=== PATIENT | male | born 1945 | race Caucasian/White ===

== ENCOUNTER 2021-05-04 08:00 | Outpatient (CLI) | payer MEDICARE | END 2021-05-04 23:59 | disposition home or self-care (01) | LOC: LAB.N 08:00 | PROVIDERS: ATTEND Physician Assistant | DX: R39.9 Unspecified symptoms and signs involving the genitourinary system (principal) | CPT/HCPCS: 87086 ==

== ENCOUNTER 2023-04-07 23:55 | Day surgery (SDC) | payer MEDICARE ==
[2023-04-08 00:37] LABS: BASOPHILS % (AUTO) 0.5 %; EOSINOPHILS # (AUTO) 0.2 10^3/uL (0.0-0.7); EOSINOPHILS % (AUTO) 2.3 %; HCT - HEMATOCRIT 42.8 % (42.0-52.0); HGB - HEMOGLOBIN 14.7 g/dL (14.0-18.0); LYMPHOCYTES # (AUTO) 1.3 10^3/uL (1.5-3.5); LYMPHOCYTES % (AUTO) 15.6 %; MEAN CORPUSCULAR HEMOGLOBIN 33.1 pg (27.0-31.0); MEAN CORPUSCULAR HGB CONC 34.3 g/dL (32.0-36.0); MEAN CORPUSCULAR VOLUME 96.4 fL (80.0-94.0); MONOCYTES # (AUTO) 0.7 10^3/uL (0.0-1.0); MONOCYTES % (AUTO) 8.1 %; NEUTROPHILS # (AUTO) 6.1 10^3/uL (1.5-6.6); NEUTROPHILS % (AUTO) 72.9 %; PLT - PLATELET COUNT 195 10^3/uL (130-450); RED BLOOD COUNT 4.44 10^6/uL (4.70-6.10); RED CELL DISTRIBUTION WIDTH 11.9 % (12.0-15.0); WHITE BLOOD COUNT 8.3 x10^3/uL (4.8-10.8)
[2023-04-08] MEDS ORDERED: MORPHINE 2 MG/ML CARPUJECT IVP STA ×2 (00:52→01:24)
[2023-04-08 00:54] LABS: ALBUMIN 4.6 g/dL (3.2-5.5); ALBUMIN/GLOBULIN RATIO 1.5 (1.0-2.2); BILIRUBIN,TOTAL 0.3 mg/dL (0.2-1.0); CALCIUM 9.6 mg/dL (8.5-10.3); CREATININE 2.1 mg/dL (0.6-1.3); POTASSIUM 4.1 mmol/L (3.5-4.5); TOTAL PROTEIN 7.7 g/dL (6.4-8.9)
[2023-04-08] MEDS ORDERED: SODIUM CHLORIDE 0.9% 1,000 ML IV STA ×2 (01:20→02:54)
[2023-04-08] MEDS ORDERED: iohexoL-300 100 ML VIAL IVP ONE (02:13)
--- NOTE | 2023-04-08 02:16 | ED Physician Documentation ---
PD HPI ABD PAIN - Stated complaint Stated Complaint: STOMACH PX - Chief complaint Chief Complaint: Abd Pain - History obtained from History obtained from: Patient - Additional information Additional information: 77-year-old male with history of hypertension, hyperlipidemia presents from home by private vehicle for "a stomachache". Patient states that he was sitting in his recliner watching TV when at 9 PM he noticed a sharp pain in his right upper quadrant. He had an episode of emesis but the pain persisted and so he decided to present for evaluation. Patient states he had a similar episode 3 to 4 days ago, but did not seek medical care at that time because his symptoms resolved on their own. No medications taken prior to arrival. Reports history of prostatectomy, denies other abdominal surgeries. Review of Systems Constitutional: denies: Fever, Chills Cardiac: denies: Chest pain / pressure, Palpitations Respiratory: denies: Dyspnea, Cough, Wheezing GI: reports: Abdominal Pain, Nausea, Vomiting : denies: Dysuria, Frequency, Hesitancy Skin: denies: Rash, Lesions Musculoskeletal: denies: Neck pain PD PAST MEDICAL HISTORY - Past Medical History Past Medical History: Yes Cardiovascular: Hypertension, High cholesterol - Past Surgical History Past Surgical History: Yes - Present Medications Home Medications: Ambulatory Orders Medication Instructions Recorded Confirmed Losartan [Cozaar] 50 mg PO DAILY 04/08/23 04/08/23 Lovastatin 40 mg PO DAILY 04/08/23 04/08/23 Tamsulosin HCl [Flomax] 0.4 mg PO DAILY 04/08/23 04/08/23 amLODIPine [Norvasc] 5 mg PO DAILY 04/08/23 04/08/23 - Allergies Allergies/Adverse Reactions: Allergies Allergy/AdvReac Type Severity Reaction Status Date / Time No Known Drug Allergies Allergy Verified 04/08/23 00:08 - Social History Does the pt smoke?: No Smoking Status: Never smoker Does the pt drink ETOH?: Yes ETOH Use: Wine, Beer, Liquor Does the pt have substance abuse?: No - Immunizations Immunizations are current?: Yes - POLST Patient has POLST: No PD ED PE NORMAL - Vitals Vital signs reviewed: Yes - General General: Alert and oriented X 3, No acute distress, Well developed/nourished - HEENT HEENT: Atraumatic - Neck Neck: Supple, no meningeal sign - Cardiac Cardiac: RRR, Strong equal pulses - Respiratory Respiratory: No respiratory distress, Clear bilaterally - Abdomen Abdomen: Soft, Non distended, Other (RUQ Tenderness to deep palpation. 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, No motor deficit, Normal speech - Psych Psych: Normal mood, Normal affect Results - Vitals Vitals: Vital Signs - 24 hr 04/08/23 04/08/23 04/08/23 00:04 01:27 02:00 Temperature 36.0 C L Heart Rate 66 60 65 Respiratory 16 16 16 Rate Blood Pressure 175/72 H 165/86 H 134/62 H O2 Saturation 98 96 95 04/08/23 04/08/23 02:25 02:50 Temperature Heart Rate 65 70 Respiratory 16 14 Rate Blood Pressure 138/78 H 148/77 H O2 Saturation 95 95 Oxygen O2 Source Room air - Labs Labs: Laboratory Tests 04/08/23 04/08/23 04/08/23 00:34 00:34 00:34 WBC 8.3 RBC 4.44 L Hgb 14.7 Hct 42.8 MCV 96.4 H MCH 33.1 H MCHC 34.3 RDW 11.9 L Plt Count 195 MPV 10.0 Neut # (Auto) 6.1 Lymph # (Auto) 1.3 L [place] # (Auto) 0.7 Eos # (Auto) 0.2 Baso # (Auto) 0.0 Absolute Nucleated RBC 0.00 Nucleated RBC % 0.0 Sodium 138 Potassium 4.1 Chloride 102 Carbon Dioxide 30 Anion Gap 6.0 BUN 26 H Creatinine 2.1 H Estimated GFR (MDRD) 31 L Glucose 200 H Calcium 9.6 Total Bilirubin 0.3 AST 13 ALT 19 Alkaline Phosphatase 58 Troponin I High Sens 6.2 Total Protein 7.7 Albumin 4.6 Globulin 3.1 Albumin/Globulin Ratio 1.5 Lipase 189 H PD Medical Decision Making - ED course Complexity details: reviewed results, re-evaluated patient, considered differential, d/w patient ED course: Right upper quadrant abdominal pain. Abdomen is soft, no peritoneal signs. Pain and nausea medications ordered. Will order CT scan for assessment. Laboratory work significant for mild elevation in lipase. Other laboratory work within normal limits. CT pending. CT concerning for cholecystitis. Patient reassessed, continuing to endorse nausea and 7/10 abdominal pain. Case discussed with Dr. Ibarra of general surgery, who will evaluate the patient in the morning for possible cholecyste ctomy. Patient and updated of results at bedside, they are in agreement with plan. Departure - Departure Disposition: ED Place in Observation Clinical Impression: Cholecystitis Abdominal pain Qualifiers: Abdominal location: right upper quadrant Qualified Code(s): R10.11 - Right upper quadrant pain Forms: PCP List
[2023-04-08 02:47] LABS: BILIRUBIN,URINE NEGATIVE (NEGATIVE); GLUCOSE, URINE (UA) 100 mg/dL (NEGATIVE); KETONES,URINE (UA) NEGATIVE (NEGATIVE); LEUKOCYTE ESTERASE, URINE NEGATIVE (NEGATIVE); NITRITE,URINE NEGATIVE (NEGATIVE); OCCULT BLOOD,URINE NEGATIVE (NEGATIVE); PROTEIN,URINE 100 mg/dL (NEGATIVE); UROBILINOGEN,URINE 0.2 (NORMAL) E.U./dL (NORMAL)
[2023-04-08] MEDS ORDERED: HYDROmorphone 1 MG/ML CARPUJECT IVP STA ×2 (02:54→07:24)
[2023-04-08] MEDS ORDERED: ONDANSETRON 4 MG/2 ML VIAL IVP STA ×2 (02:54→07:25)
[2023-04-08 02:58] LABS: CLARITY,URINE CLEAR (CLEAR)
[2023-04-08 03:00] LABS: BACTERIA,URINE None Seen /HPF (None Seen); RBC,URINE 0-5 /HPF (0-5); SQUAMOUS EPITHELIAL CELL,UR FEW Squamous (<= Few); WBC,URINE 0-3 /HPF (0-3)
[2023-04-08 03:01] LABS: MUCUS,URINE Few Strands
[2023-04-08 07:26] LABS: PT - PROTHROMBIN TIME 11.1 secs (9.9-12.6)
--- NOTE | 2023-04-08 07:46 | CT Report ---
PROCEDURE: ABDOMEN/PELVIS W INDICATIONS: RUQ PAIN CONTRAST: 100 ml omni 300 TECHNIQUE: After the administration of IV contrast, 5 mm thick sections acquired from the diaphragms to the symp hysis. 5 mm thick coronal and sagittal reformats were acquired. For radiation dose reduction, the f ollowing was used: automated exposure control, adjustment of mA and/or kV according to patient size. COMPARISON: None FINDINGS: Image quality: Excellent. Lung bases and heart: Heart is enlarged. Liver: No solid mass. Hepatic steatosis. Gallbladder and biliary tree: Gallbladder is distended with minimal pericholecystic stranding. Calcif ication is present within the cystic duct. No intrahepatic ductal dilation. Spleen: No splenomegaly. Pancreas: No pancreatic ductal dilation. Adrenals: No adrenal nodule. Kidneys and ureters: No hydronephrosis. 1.1 cm exophytic heterogeneous renal mass on series 2 image 3 3. A second similar appearing focus measuring 1.5 cm on series 2 image 41. No priors are available fo r comparison. Simple left renal cyst. Bowel and peritoneum: A frontal gas pattern is nonspecific with minimal appearance of several small f luid-filled bowel loops.. No pathologic free fluid. Lymph nodes: No central or retroperitoneal adenopathy. Vessels: No infrarenal aortic aneurysm. PELVIS Reproductive organs: Unremarkable. Bladder: No abnormal wall thickening, accounting for underdistension. Pelvic lymph nodes: No pelvic adenopathy by size criteria. Bones: No aggressive osseous abnormality. Other: No significant ventral or inguinal hernia. IMPRESSION: Distended gallbladder without pericholecystic stranding with cystic duct stone. Overall findings are suggestive of cholecystitis secondary to cystic duct stone Indeterminate renal lesions as above concerning for renal cell malignancy. CT/MRI with renal protocol is recommended. The above findings are concordant with preliminary report. Reviewed by: Dary Cuenca MD on 04/08/2023 7:44 AM PDT Approved by: Dary Cuenca MD on 04/08/2023 7:44 AM PDT Station ID: [id number]
--- NOTE | 2023-04-08 10:15 | ANESTHESIA ---
Pre-Anesthesia VS, & Labs - Diagnosis Cholecytitis - Procedure laparosopic cholecystectomy Vital Signs: Temp Pulse Resp BP Pulse Ox O2 Flow Rate 36.4 C L 68 16 125/94 H 96 04/08/23 07:44 04/08/23 08:45 04/08/23 08:45 04/08/23 08:45 04/08/23 08:45 Height: 5 ft 9 in Weight (kg): 91.626 kg Body Mass Index: 29.8 BMI Classification: Overweight - NPO >8 hours - Lab Results Current Lab Results: Laboratory Tests 04/08/23 07:13: PT 11.1, INR 1.0 04/08/23 07:13: Blood Type A POSITIVE, Antibody Screen NEGATIVE 04/08/23 00:34: Troponin I High Sens 6.2 04/08/23 00:34: Sodium 138, Potassium 4.1, Chloride 102, Carbon Dioxide 30, Anion Gap 6.0, BUN 26 H, Creatinine 2.1 H, Estimated GFR (MDRD) 31 L, Glucose 200 H, Calcium 9.6, Total Bilirubin 0.3, AST 13, ALT 19, Alkaline Phosphatase 58, Total Protein 7.7, Albumin 4.6, Globulin 3.1, Albumin/Globulin Ratio 1.5, Lipase 189 H 04/08/23 00:34: WBC 8.3, RBC 4.44 L, Hgb 14.7, Hct 42.8, MCV 96.4 H, MCH 33.1 H, MCHC 34.3, RDW 11.9 L, Plt Count 195, MPV 10.0, Neut # (Auto) 6.1, Lymph # (Auto) 1.3 L, [place] # (Auto) 0.7, Eos # (Auto) 0.2, Baso # (Auto) 0.0, Absolute Nucleated RBC 0.00, Nucleated RBC % 0.0 04/08/23 00:15: Blood Type Recheck A POSITIVE Lab results reviewed: Yes Fish Bones: 04/08/23 00:34 04/08/23 00:34 Home Medications and Allergies Home Medications: Ambulatory Orders Losartan [Cozaar] 50 mg PO DAILY 04/08/23 Lovastatin 40 mg PO DAILY 04/08/23 Tamsulosin HCl [Flomax] 0.4 mg PO DAILY 04/08/23 amLODIPine [Norvasc] 5 mg PO DAILY 04/08/23 Active Medications Sodium Chloride (Normal Saline 0.9%) 1,000 mls @ 125 mls/hr IV .Q8H STA Stop: 04/08/23 10:53 Last Admin: 04/08/23 03:00 Dose: 125 mls/hr Losartan [Cozaar] 50 mg PO DAILY 04/08/23 Lovastatin 40 mg PO DAILY 04/08/23 Tamsulosin HCl [Flomax] 0.4 mg PO DAILY 04/08/23 amLODIPine [Norvasc] 5 mg PO DAILY 04/08/23 Allergies/Adverse Reactions: Allergies Allergy/AdvReac Type Severity Reaction Status Date / Time No Known Drug Allergies Allergy Verified 04/08/23 00:08 Anes History & Medical History - Anesthetic History Anesthesia Complications: reports: No previous complications Family history of Anesthesia Complications: Denies Family history of Malignant Hyperthermia: Denies - Medical History Cardiovascular: reports: Hypertension, High cholesterol Smoking Status: Never smoker Psychosocial: reports: No issues indicated - Surgical History Urologic: reports: Prostatic surgery Exam General: Alert, Oriented x3, Cooperative Dental: WNL Mouth Opening: Greater than 4 Fingerbreadths Neck Mobility: Normal Mallampati classification: II Thyromental Distance: 4-6 cm Respiratory: Lungs clear Cardiovascular: Regular rate (PAC on EKG this visit) Neurological: Normal speech Mental/Cognitive Status: Alert/Oriented X3, Normal for patient Cognitive Status: Within normal limits Plan Anesthesia Type: General Consent for Procedure(s) Verified and Reviewed: Yes Code Status: Attempt Resuscitation ASA classification: 2-Mild systemic disease Is this case an emergency?: Yes
[2023-04-08] MEDS ORDERED: LIDOCAINE-PF 2% 10 ML AMP SUBQ ONE (10:17)
[2023-04-08] MEDS ORDERED: SEVOFLURANE 250 ML LIQUID INH ONE (10:17)
[2023-04-08] MEDS ORDERED: PROPOFOL 200 MG/20 ML VIAL IVP ONE (10:17)
[2023-04-08] MEDS ORDERED: MIDAZOLAM 2 MG/2 ML VIAL ONE (10:20)
[2023-04-08] MEDS ORDERED: ROCURONIUM 50 MG/5 ML VIAL ONE ×2 (10:21→12:03)
[2023-04-08] MEDS ORDERED: fentaNYL 100 MCG/2 ML VIAL ONE ×2 (10:21→12:28)
--- NOTE | 2023-04-08 10:26 | HISTORY & PHYSICAL EXAMINATION ---
Chief Complaint - Chief Complaint Chief Complaint: right upper abdominal pain History of Present Illness - History Obtained From Records Reviewed: yes History obtained from: pt Exam Limitations: none - History of Present Illness HPI Comment/Other: right upper abdominal pain x 3 days. not improving History - Past Medical History Cardiovascular: reports: Hypertension, High cholesterol MRSA Hx?: No - POLST Patient has POLST: No Meds/Allgy - Home Medications Home Medications: Ambulatory Orders Medication Instructions Recorded Confirmed Losartan [Cozaar] 50 mg PO DAILY 04/08/23 04/08/23 Lovastatin 40 mg PO DAILY 04/08/23 04/08/23 Tamsulosin HCl [Flomax] 0.4 mg PO DAILY 04/08/23 04/08/23 amLODIPine [Norvasc] 5 mg PO DAILY 04/08/23 04/08/23 - Allergies Allergies/Adverse Reactions: Allergies Allergy/AdvReac Type Severity Reaction Status Date / Time No Known Drug Allergies Allergy Verified 04/08/23 00:08 Review of Systems - Other Findings Other Findings: 10 pt ros as above otherwise unremarkable denies heart and lung disease. Exam - Vital Signs Vital Signs: Vital Signs x48h Temp Pulse Resp BP Pulse Ox 04/08/23 08:45 68 16 125/94 H 96 04/08/23 07:44 36.4 C L 71 18 138/80 H 96 04/08/23 06:51 36.9 C 66 16 162/78 H 94 04/08/23 06:02 36.3 C L 64 13 144/71 H 95 04/08/23 05:49 74 18 142/75 H 94 04/08/23 04:36 69 12 156/83 H 94 04/08/23 03:24 36.3 C L 66 13 147/81 H 94 04/08/23 02:50 70 14 148/77 H 95 04/08/23 02:25 65 16 138/78 H 95 - Physical Exam General Appearance: positive: No acute distress, Alert Eyes Bilateral: positive: PERRL, EOMI, No scleral icterus ENT: positive: No signs of dehydration Neck: positive: No JVD, Trachea midline Respiratory: positive: No respiratory distress, Breath sounds nml Cardiovascular: positive: Regular rate & rhythm Abdomen: positive: Non-tender, No distention Neurologic/Psychiatric: positive: Oriented x3 Conclusion/Plan - Problem List (1) Cholecystitis Conclusion/Plan: plan lap earnest. parq held and consent obtained - Lab Results Lab results reviewed: Yes Fish Bones: 04/08/23 00:34 04/08/23 00:34 - Diagnostic Imaging Results Diagnostic Imaging Results: positive: Read independently
[2023-04-08] MEDS ORDERED: ONDANSETRON 4 MG/2 ML VIAL IVP PRN ×2 (10:27→12:51)
[2023-04-08] MEDS ORDERED: ATROPINE ABBOJECT 1 MG/10 ML SYRINGE IVP PRN (10:27)
[2023-04-08] MEDS ORDERED: NALOXONE 0.4 MG/ML VIAL IVP PRN (10:27)
[2023-04-08] MEDS ORDERED: HYDROmorphone 0.5 MG/0.5 ML SYRINGE IVP PRN ×2 (10:27→12:51)
[2023-04-08] MEDS ORDERED: ePHEDrine 50 MG/ML VIAL IVP PRN (10:27)
[2023-04-08] MEDS ORDERED: fentaNYL 100 MCG/2 ML VIAL IVP PRN (10:27)
[2023-04-08] MEDS ORDERED: METOCLOPRAMIDE 10 MG/2 ML VIAL IVP PRN (10:27)
[2023-04-08] MEDS ORDERED: MORPHINE 2 MG/ML CARPUJECT IVP PRN (10:27)
[2023-04-08] MEDS ORDERED: LACTATED RINGERS 1,000 ML IV SCH (11:00)
[2023-04-08] MEDS ORDERED: ceFAZolin 1 GM VIAL ONE (11:18)
[2023-04-08] MEDS ORDERED: ONDANSETRON 4 MG/2 ML VIAL ONE (11:22)
[2023-04-08] MEDS ORDERED: DEXAMETHASONE 4 MG/ML VIAL ONE (11:22)
[2023-04-08] MEDS ORDERED: BUPIVACAINE 0.25% PF 30 ML VIAL SUBQ ONE (11:23)
[2023-04-08] MEDS ORDERED: BUPIVACAINE 0.25% PF 30 ML VIAL ONE (11:24)
[2023-04-08] MEDS ORDERED: ACETAMINOPHEN 1,000 MG/100 ML 1,000 MG/100 ML BAG IV ONE (12:16)
[2023-04-08] MEDS ORDERED: SUGAMMADEX 200 MG/2 ML VIAL IVP ONE (12:18)
[2023-04-08] MEDS ORDERED: LACTATED RINGERS 1,000 ML IV ONE ×4 (12:44→12:45)
[2023-04-08] MEDS ORDERED: HYDROcod/ACETAM 5/325 MG TABLET PO PRN (12:51)
--- NOTE | 2023-04-08 12:59 | OPERATIVE REPORT ---
Operative Report - General Procedure Date: 04/08/23 Planned Procedure: lap earnest Pre-Op Diagnosis: cholecystitis Procedure Performed: lap earnest Post Op Diagnosis: cholecystitis - Procedure Note Primary Surgeon: mercedes eller Anesthesia Technique: General ET tube, Local Pathology: gallbladder Estimated Blood Loss (mL): 2 Drain/Tube Type: Other (none) Indications: cholecystitis with persistent pain Findings: as above stone material removed from cystic duct prior to clipping Complications: none - Other Other Information/Narrative: The patient was properly identified, brought to the operating room and placed in supine position. Sequential compression devices were placed. General endotracheal anesthesia was induced. The patient was prepped and draped in a sterile fashion and given preoperative antibiotics. Local anesthetic was given to incision areas. An incision was made in the periumbilical area. Dissection proceeded down to fascia. The fascia was incised lifted upwards and abdomen entered with a Veress needle. CO2 was insufflated to a pressure of 15. An 11 mm trocar followed by a 30 degree scope was placed. There was no evidence of in jury from Veress needle or trocar placement. Under direct vision 2 5 mm trochars were placed in the right upper quadrant and an 11 mm trocar was placed in the epigastrium. Body of the gallbladder was retracted anterior. Lateral attachments were partially taken down further mobilizing the gallbladder more anterior and away from the duodenum. The infundibulum of the gallbladder was then retracted right lateral and caudad. With minimal use of cautery a large bare cystic plate area or window was carefully created. The cystic duct was inspected from right lateral and left lateral positions. [The cystic duct was partially open close to the gallbladder. Stone material was milked upwards out of the cystic duct. Clear bile returned.] The cystic duct was then clipped at the gallbladder and 3 times slightly proximal and sharply divided. The cystic artery was clipped at the gallbladder and then 2 times slightly proximal and sharply divided. The gallbladder was mobilized off from the bed of the liver with hook cautery. The gallbladder was placed in Endo Catch bag and brought out through the epigastric trocar site.The abdomen was thoroughly irrigated. Hemostasis was assured. Trochars were removed under direct vision. Fascia at the larger trocar sites was closed with [id number] are running 0 Vicryl suture. Subcutaneous tissue was irrigated and skin closed with interrupted 4-0 Monocryl. Dressings were applied. Patient tolerated the procedure well was awakened and brought to recovery in good condition.
--- NOTE | 2023-04-08 13:23 | ANESTHESIA POST OP EVALUATION ---
Anesthesia Post Eval - Post Anesthesia Eval Vitals: Last Vital Signs Temp 36.1 C L 04/08/23 13:15 Pulse 70 04/08/23 13:15 Resp 13 04/08/23 13:15 BP 154/70 H 04/08/23 13:15 Pulse Ox 94 04/08/23 13:15 O2 Flow Rate CV Function Including HR & BP: Stable Pain Control: Satisfactory (denies) Nausea & Vomiting: Negative Mental Status: Baseline (arousable, acknowledged in room) Respiratory Status: Airway Patent Hydration Status: Satisfactory Anesthesia Complications: None - Other Details/Therapies Other Details/Therapies: Plan for OBS status until this evening. Discharge status TBD
[2023-04-08 16:44] VITALS: O2SAT 94
[2023-04-08 17:51] VITALS: BP 150/67
== END 2023-04-08 17:59 | disposition home or self-care (01) ==
LOC: ED 23:55 → SDS 04-08 10:26 → MS2 04-08 13:30 → SDS 04-08 17:59
PROVIDERS: ATTEND Surgery
PROC: 0FT44ZZ Resection of Gallbladder, Percutaneous Endoscopic Approach (ICD-10-PCS; principal; 2023-04-08 11:00)
DX: K81.1 Chronic cholecystitis (principal); I10 Essential (primary) hypertension
CPT/HCPCS: 36415; 47562; 74177; 80053; 81001; 83690; 84484; 85025; 85610; 86850; 86900; 86901; 93005; 96374; 96375; 96376; 99285; A9270; J0131; J1170; J3490; J7120; Q9967; 81003; 87086